=== PATIENT | male | born 1990 | race African-American/Black ===

== ENCOUNTER 2019-05-30 15:27 | Emergency (ER) | payer OTHER ==
[~2019-05-30] VITALS: Ht 177.8 cm; Wt 89.6 kg
[2019-05-30 15:28] VITALS: BP 137/83
[2019-05-30] MEDS ORDERED: FLUORESCEIN OPHTH 1 MG STRIP OS ONE (16:45)
[2019-05-30] MEDS ORDERED: TETRACAINE 0.5% OPHTH SOLN 4ML OS ONE (16:45)
[2019-05-30] MEDS ORDERED: POLYTRIM OPTH DROPS 10ML OS STA (16:57)
== END 2019-05-30 17:17 | disposition home or self-care (01) ==
LOC: M ED 15:27
DX: S05.92XA Unspecified injury of left eye and orbit, initial encounter (principal); W22.8XXA Striking against or struck by other objects, initial encounter; Y92.099 Unspecified place in other non-institutional residence as the place of occurrence of the external cause; Y93.9 Activity, unspecified; Y99.9 Unspecified external cause status

== ENCOUNTER 2020-03-31 13:05 | Day surgery (SDC) | payer OTHER ==
[~2020-03-31] VITALS: Ht 177.8 cm; Wt 93.3 kg
[2020-03-31] MEDS ORDERED: KETOROLAC 30 MG/ML 1ML VIAL IV ONE (13:30)
[2020-03-31] MEDS ORDERED: BOOSTRIX/ADACEL VACCINE (DIPHTH/PERTUSS/ACELL/TETANUS) 0.5ML SYR IM ONE (14:00)
[2020-03-31] MEDS ORDERED: ceFAZolin SOD 2 GM in IV 1 EA IV ONE (14:30)
--- NOTE | 2020-03-31 14:33 | REP ---
RIGHT HAND SERIES: Four views. HISTORY: Laceration. Broken mirror injury. FINDINGS: There are multiple areas of soft tissue swelling and irregularity consistent with lacerations. These involve the dorsal and ulnar aspect of the long finger at the PIP and DIP joints and of the ring finger near the PIP joint. There are several tiny slivers of opaque material in these disrupted soft tissues and both digits consistent with small opaque foreign bodies. No fracture or soft tissue gas is seen. IMPRESSION: Multifocal soft tissue disruption of the long and ring fingers with multiple radiopaque foci of retained material. No fracture or soft tissue gas is seen. Electronically Signed by Walter Lyles MD 03/31/2020 04:41 P
[2020-03-31] MEDS ORDERED: ACETAMINOPHEN TAB 650MG DOSE (2X325MG) PO PRN ×2 (16:30→20:45)
[2020-03-31] MEDS ORDERED: BISACODYL 10 MG SUPP PR PRN (16:30)
[2020-03-31] MEDS ORDERED: MOM 30ML SUSPENSION UDC PO PRN (16:30)
[2020-03-31] MEDS ORDERED: NS 1,000 ML IV SCH (16:30)
[2020-03-31] MEDS ORDERED: NORCO, ANEXSIA 5/325MG TABLET (HYDROcodone/ACETAMINOPHEN) PO PRN (16:30)
[2020-03-31] MEDS ORDERED: ONDANSETRON 4MG/2ML VIAL IV PRN ×3 (16:30→21:00)
[2020-03-31] MEDS ORDERED: ACETAMINOPH W/CODEINE #3 TAB UD PO PRN (16:30)
[2020-03-31] MEDS ORDERED: fentaNYL 100 MCG/2 ML INJECTION (J3010) As Ordered ONE ×2 (16:58→19:59)
[2020-03-31] MEDS ORDERED: MIDAZOLAM INJ 2MG/2ML VIAL (J2250 PER 1MG) As Ordered ONE (16:58)
[2020-03-31] MEDS ORDERED: ONDANSETRON 4MG/2ML VIAL As Ordered ONE (16:59)
[2020-03-31] MEDS ORDERED: LIDOCAINE 2% 100MG/5ML SDV (FOR ANES.) As Ordered ONE (16:59)
[2020-03-31] MEDS ORDERED: propofoL 200 MG/20 ML VIAL As Ordered ONE ×3 (16:59→20:03)
[2020-03-31] MEDS ORDERED: dexameTHASONE 4 MG/ML 1ML VIAL (J1100 PER 1MG) As Ordered ONE (16:59)
[2020-03-31] MEDS ORDERED: ceFAZolin 1GM VIAL (J0690 PER 500MG) As Ordered ONE (17:13)
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
[2020-03-31] MEDS ORDERED: BUPIVACAINE HCL 0.25% 30ML VIAL As Ordered ONE (19:15)
[2020-03-31] MEDS: PERCOCET 5MG/325MG TAB PO PRN ×2 (20:40→21:25)
[2020-03-31] MEDS ORDERED: METOCLOPRAMIDE INJ 10MG/2ML VIAL (J2765 PER 1) IV PRN (20:45)
[2020-03-31] MEDS ORDERED: LR 1,000 ML IV SCH ×2 (20:45)
[2020-03-31] MEDS ORDERED: fentaNYL 100 MCG/2 ML INJECTION (J3010) IV PRN (20:45)
[2020-03-31] MEDS ORDERED: MORPHINE 2 MG/ML 1ML VIAL (J2270) IV PRN (20:45)
[2020-03-31] MEDS ORDERED: PERCOCET 5MG/325MG TAB PO PRN (21:00)
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
[2020-03-31 21:23] VITALS: BP 140/90
[2020-03-31] MEDS ORDERED: ceFAZolin SOD 1 GM in D5W MINI-BAG PLUS 50 ML IV SCH (23:00)
[2020-04-01] MEDS ORDERED: CelecoXIB (CeleBREX) 100 MG CAP PO SCH (09:00)
== END 2020-03-31 22:20 | disposition home or self-care (01) ==
LOC: M ED 13:05 → M SDC 16:40
PROVIDERS: ATTEND Orthopaedic Surgery Sports Medicine
DX: S61.011A Laceration without foreign body of right thumb without damage to nail, initial encounter (principal); S61.212A Laceration without foreign body of right middle finger without damage to nail, initial encounter; S61.214A Laceration without foreign body of right ring finger without damage to nail, initial encounter; W25.XXXA Contact with sharp glass, initial encounter; Y92.89 Other specified places as the place of occurrence of the external cause; Y93.89 Activity, other specified; Y99.9 Unspecified external cause status; Z23 Encounter for immunization
CPT/HCPCS: 11760; 13132; 73130; 86850; 86900; 86901; 90471; 90715; 96365; 96375; 99284; J0690; J1100; J1885; J2250; J2405; J3010; U0002